=== PATIENT | male | born 1965 | race Caucasian/White ===

== ENCOUNTER → 2023-07-10 | Outpatient (CLI) | payer OTHER ==
[2023-07-10 08:56] LABS: HEMATOCRIT 47.8 % (42.0-52.0); HEMOGLOBIN 15.9 g/dl (13.5-17.5); MEAN CORPUSCULAR HEMOGLOBIN 29.3 pg (27.0-33.0); MEAN CORPUSCULAR HGB CONC 33.3 g/dl (32.0-36.5); MEAN CORPUSCULAR VOLUME 88.2 fl (80.0-96.0); PLATELET COUNT, AUTOMATED 285 10^3/uL (150-450); RED BLOOD COUNT 5.42 10^6/uL (4.30-6.10); WHITE BLOOD COUNT 7.1 10^3/uL (4.0-10.0)
[2023-07-10 09:09] LABS: HEMOGLOBIN A1c 5.5 % (4.0-6.0)
[2023-07-10 09:25] LABS: PROSTATIC SPECIFIC AG MONITOR 0.48 NG/ML (< 4.00)
[2023-07-10 09:28] LABS: ALBUMIN 4.1 G/DL (3.2-5.2); ALKALINE PHOSPHATASE 71 U/L (46-116); ALT/SGPT 36 U/L (7.0-40); AST/SGOT 20 U/L (<34); BILIRUBIN,TOTAL 0.3 MG/DL (0.3-1.2); BLOOD UREA NITROGEN 20 MG/DL (9-23); CALCIUM LEVEL 8.9 MG/DL (8.5-10.1); CARBON DIOXIDE LEVEL 27 MMOL/L (20-31); CHLORIDE LEVEL 103 MMOL/L (98-107); CHOLESTEROL LEVEL 245 MG/DL (<200); CHOLESTEROL RISK RATIO 6.06 (<5); CREATININE FOR GFR 1.09 MG/DL (0.70-1.30); GLOMERULAR FILTRATION RATE > 60.0 (>56); GLUCOSE, FASTING 123 MG/DL (60-100); HDL CHOLESTEROL 40.4 MG/DL (>40); LDL CHOLESTEROL 168.8 MG/DL (<100); NON-HDL-C 204.6 MG/DL; POTASSIUM SERUM 4.2 MMOL/L (3.5-5.1); SODIUM LEVEL 139 MMOL/L (136-145); TOTAL PROTEIN 7.3 G/DL (5.7-8.2); TRIGLYCERIDES LEVEL 179 MG/DL (<150)
[2023-07-10 09:29] LABS: THYROID STIMULATING HORMONE 1.866 uIU/ML (0.55-4.78)
[2023-07-10 09:30] LABS: TESTOSTERONE 320 NG/DL (241-827)
== END ==
LOC: M LAB 08:11
PROVIDERS: ATTEND Family Medicine
DX: I10 Essential (primary) hypertension (principal); E11.9 Type 2 diabetes mellitus without complications; E03.9 Hypothyroidism, unspecified

== ENCOUNTER → 2023-08-29 | Outpatient (CLI) | payer OTHER ==
[2023-08-29 11:17] LABS: HEMATOCRIT 44.9 % (42.0-52.0); HEMOGLOBIN 15.1 g/dl (13.5-17.5); MEAN CORPUSCULAR HEMOGLOBIN 29.4 pg (27.0-33.0); MEAN CORPUSCULAR HGB CONC 33.6 g/dl (32.0-36.5); MEAN CORPUSCULAR VOLUME 87.4 fl (80.0-96.0); PLATELET COUNT, AUTOMATED 275 10^3/uL (150-450); RED BLOOD COUNT 5.14 10^6/uL (4.30-6.10); WHITE BLOOD COUNT 5.9 10^3/uL (4.0-10.0)
[2023-08-29 11:26] LABS: PROTHROMBIN TIME 12.9 SECONDS (12.5-14.5)
[2023-08-29 11:46] LABS: ALBUMIN 3.8 G/DL (3.2-5.2); ALKALINE PHOSPHATASE 69 U/L (46-116); ALT/SGPT 31 U/L (7.0-40); AST/SGOT 20 U/L (<34); BILIRUBIN,TOTAL 0.5 MG/DL (0.3-1.2); BLOOD UREA NITROGEN 23 MG/DL (9-23); CALCIUM LEVEL 9.5 MG/DL (8.5-10.1); CARBON DIOXIDE LEVEL 27 MMOL/L (20-31); CHLORIDE LEVEL 104 MMOL/L (98-107); CHOLESTEROL LEVEL 198 MG/DL (<200); CHOLESTEROL RISK RATIO 5.38 (<5); CREATININE FOR GFR 1.25 MG/DL (0.70-1.30); GLOMERULAR FILTRATION RATE > 60.0 (>56); GLUCOSE, FASTING 97 MG/DL (60-100); HDL CHOLESTEROL 36.8 MG/DL (>40); LDL CHOLESTEROL 137.4 MG/DL (<100); NON-HDL-C 161.2 MG/DL; POTASSIUM SERUM 4.5 MMOL/L (3.5-5.1); SODIUM LEVEL 136 MMOL/L (136-145); TOTAL PROTEIN 6.9 G/DL (5.7-8.2); TRIGLYCERIDES LEVEL 119 MG/DL (<150)
[2023-08-29 11:48] LABS: THYROID STIMULATING HORMONE 1.589 uIU/ML (0.55-4.78)
[2023-08-29 11:59] LABS: HEMOGLOBIN A1c 5.6 % (4.0-6.0)
== END ==
LOC: M LAB 09:49
PROVIDERS: ATTEND Family Medicine
DX: I10 Essential (primary) hypertension (principal); R53.83 Other fatigue; E03.9 Hypothyroidism, unspecified

== ENCOUNTER 2023-09-08 08:39 | Day surgery (SDC) | payer OTHER ==
[~2023-09-08] VITALS: Ht 175.3 cm; Wt 93.1 kg
[~2023-09-08 08:39] MED LIST: CEFUROXIME 1MG/0.1ML INTRACAMERAL INJ As Ordered ONE; CYCLOPENTOLATE 1% OPHTH SOLN 2ML BTL OS SCH; ERGO500029 PO; LIDOCAINE 1% SDV 5ML VIAL As Ordered ONE; LIDOCAINE 3.5 % 1ML OPHTH TOPICAL GEL OU ONE; LISI10TA22 PO; OFLOXACIN 0.3 % (OCUFLOX) OPTH SOL 5ML OS ONE; PHENYLEPHRINE 10% OPHTH SOL 5ML OS PRN; PHENYLEPHRINE 2.5% OPHTH SOL 2ML OS SCH; TROPICAMIDE 1% OPHTH SOLN 15ML OS SCH
[2023-09-08] MEDS ORDERED: MIDAZOLAM INJ 2MG/2ML VIAL As Ordered ONE (08:54)
[2023-09-08] MEDS ORDERED: BSS IRRIG/VANCO(10MG)/TOBRA(5MG)/EPINEPH(1:1000-0.5CC)500ML BAG-ORONLY As Ordered ONE (09:17)
[2023-09-08] MEDS ORDERED: TRYPAN BLUE 0.06 % 2.25 ML OPHTH SYR (VISIONBLUE) As Ordered ONE (10:35)
[2023-09-08] MEDS ORDERED: VISCOAT 40-30MG/ML 0.5ML SYRINGE As Ordered ONE (10:36)
[2023-09-08] MEDS ORDERED: PROVISC 10 MG/ML 0.85ML SYRINGE As Ordered ONE (10:37)
[2023-09-08 10:53] VITALS: BP 131/75; TEMP 98.1; O2SAT 100
== END 2023-09-08 11:20 | disposition home or self-care (01) ==
LOC: M SDC 08:39
PROVIDERS: ATTEND Ophthalmology
DX: H25.22 Age-related cataract, morgagnian type, left eye (principal); I10 Essential (primary) hypertension; M06.9 Rheumatoid arthritis, unspecified; Z79.899 Other long term (current) drug therapy; F17.200 Nicotine dependence, unspecified, uncomplicated
CPT/HCPCS: 66984; A4649; J0697; J2250; V2632

== ENCOUNTER 2023-09-12 06:13 | Day surgery (SDC) | payer OTHER ==
[~2023-09-12] VITALS: Ht 175.3 cm; Wt 93.9 kg
[~2023-09-12 06:13] MED LIST changes: -CEFUROXIME 1MG/0.1ML INTRACAMERAL INJ As Ordered ONE; -CYCLOPENTOLATE 1% OPHTH SOLN 2ML BTL OS SCH; -LIDOCAINE 1% SDV 5ML VIAL As Ordered ONE; -LIDOCAINE 3.5 % 1ML OPHTH TOPICAL GEL OU ONE; -OFLOXACIN 0.3 % (OCUFLOX) OPTH SOL 5ML OS ONE; -PHENYLEPHRINE 2.5% OPHTH SOL 2ML OS SCH; -TROPICAMIDE 1% OPHTH SOLN 15ML OS SCH
[2023-09-12] MEDS ORDERED: CYCLOPENTOLATE 1% OPHTH SOLN 2ML BTL OS SCH (06:50)
[2023-09-12] MEDS ORDERED: PHENYLEPHRINE 2.5% OPHTH SOL 2ML OS SCH (06:50)
[2023-09-12] MEDS ORDERED: OFLOXACIN 0.3 % (OCUFLOX) OPTH SOL 5ML OS ONE (06:50)
[2023-09-12] MEDS ORDERED: TROPICAMIDE 1% OPHTH SOLN 15ML OS SCH (06:50)
[2023-09-12] MEDS ORDERED: LIDOCAINE 3.5 % 1ML OPHTH TOPICAL GEL OU ONE (06:50)
[2023-09-12] MEDS ORDERED: BSS IRRIG/VANCO(10MG)/TOBRA(5MG)/EPINEPH(1:1000-0.5CC)500ML BAG-ORONLY IR ONE (07:05)
[2023-09-12] MEDS ORDERED: LIDOCAINE 1% SDV 5ML VIAL As Ordered ONE (07:07)
[2023-09-12] MEDS ORDERED: CEFUROXIME 1MG/0.1ML INTRACAMERAL INJ As Ordered ONE (07:09)
[2023-09-12] MEDS ORDERED: MIDAZOLAM INJ 2MG/2ML VIAL As Ordered ONE (07:29)
[2023-09-12] MEDS ORDERED: fentaNYL 100 MCG/2 ML INJECTION As Ordered ONE (07:34)
[2023-09-12] MEDS ORDERED: CARBACHOL 0.01% OPHTH SOLN 1.5ML VIAL As Ordered ONE (07:37)
[2023-09-12 07:45] VITALS: BP 109/65; TEMP 98.4; O2SAT 98
== END 2023-09-12 12:00 | disposition home or self-care (01) ==
LOC: M SDC 06:13
PROVIDERS: ATTEND Ophthalmology
DX: T85.22XA Displacement of intraocular lens, initial encounter (principal); I10 Essential (primary) hypertension; Z79.899 Other long term (current) drug therapy; F17.200 Nicotine dependence, unspecified, uncomplicated
CPT/HCPCS: 66825; J0697; J2250; J3010

== ENCOUNTER → 2024-03-27 | Outpatient (CLI) | payer OTHER ==
[~2024-03-27] MED LIST changes: -PHENYLEPHRINE 10% OPHTH SOL 5ML OS PRN
[2024-03-27 11:36] LABS: HEMATOCRIT 48.9 % (42.0-52.0); HEMOGLOBIN 16.3 g/dl (13.5-17.5); MEAN CORPUSCULAR HEMOGLOBIN 29.8 pg (27.0-33.0); MEAN CORPUSCULAR HGB CONC 33.3 g/dl (32.0-36.5); MEAN CORPUSCULAR VOLUME 89.4 fl (80.0-96.0); PLATELET COUNT, AUTOMATED 262 10^3/uL (150-450); RED BLOOD COUNT 5.47 10^6/uL (4.30-6.10); WHITE BLOOD COUNT 5.9 10^3/uL (4.0-10.0)
[2024-03-27 11:49] LABS: HEMOGLOBIN A1c 5.7 % (4.0-6.0)
[2024-03-27 12:09] LABS: ALBUMIN 4.3 G/DL (3.2-5.2); BILIRUBIN,TOTAL 0.4 MG/DL (0.3-1.2); CALCIUM LEVEL 9.8 MG/DL (8.5-10.1); CHOLESTEROL RISK RATIO 5.34 (<5); CREATININE FOR GFR 1.32 MG/DL (0.70-1.30); GLOMERULAR FILTRATION RATE 59.7 (>56); HDL CHOLESTEROL 45.5 MG/DL (>40); LDL CHOLESTEROL 158.5 MG/DL (<100); NON-HDL-C 197.5 MG/DL; POTASSIUM SERUM 4.6 MMOL/L (3.5-5.1); PROSTATIC SPECIFIC AG MONITOR 0.44 NG/ML (< 4.00); TOTAL PROTEIN 7.6 G/DL (5.7-8.2)
[2024-03-27 12:11] LABS: THYROID STIMULATING HORMONE 3.473 uIU/ML (0.55-4.78)
== END ==
LOC: M RAD 10:36
PROVIDERS: ATTEND Family Medicine
DX: I10 Essential (primary) hypertension (principal); R53.83 Other fatigue; I20.9 Angina pectoris, unspecified; Z87.81 Personal history of (healed) traumatic fracture